=== PATIENT | male | born 1995 | race Caucasian/White ===

== ENCOUNTER 2020-01-28 17:14 | Emergency (ER) | payer OTHER ==
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
== END 2020-01-28 17:40 | disposition home or self-care (01) ==
LOC: VM.ED 17:14
DX: S00.431A Contusion of right ear, initial encounter (principal); S40.819A Abrasion of unspecified upper arm, initial encounter; V58.6XXA Passenger in pick-up truck or van injured in noncollision transport accident in traffic accident, initial encounter
CPT/HCPCS: 99284